=== PATIENT | female | born 1995 | race Caucasian/White ===

== ENCOUNTER 2022-01-30 21:12 | Inpatient (IN) | payer MEDICAID, SELFPAY ==
[2022-01-30 21:09] VITALS: BP 127/79; PULSE 72; RESP 98; TEMP 36.7; O2SAT 97; BMI 23.0
--- NOTE | 2022-01-30 21:13 | W.ED.PSYCHS ---
HPI - Psych General: Chief Complaint: Psychiatric Symptoms Stated Complaint: SI Source: patient and police Mode of arrival: other Limitations: no limitations History of Present Illness: 26-year-old female who here with police for suicidality she was found with a [employer] and she is going to kill her self. Patient here is have a flat affect not very cooperative. She states that she does have severe depression and just wants to . She has had a history of suicidality in the past. She is not on any meds currently. Associated symptoms: Reports depression and suicidal ideation Review of Systems Const: Denies: fever(s), chills, body aches or change in appetite Eyes: Denies: blurry vision or eye discomfort ENMT: Denies: throat pain or dental pain Card: Denies: chest pain Resp: Denies: dyspnea GI: Denies: abdominal pain, nausea, vomiting or diarrhea : Denies: dysuria Musc: Denies: neck pain or back pain Skin/Breast: Denies: rash Neuro: Denies: headache(s) Psych: Reports: depression and suicidal ideation Martin/Lymph: Denies: easy bruising All/Imm: Denies: urticaria PFSH ED PFSH: Medical History Depression Family History Other Psychiatric illness Physical Exam Const: COMMON NORMALS: no acute distress, patient oriented x3 and healthy appearing HENMT: COMMON NORMALS: normocephalic and atraumatic HEAD & SCALP: normocephalic and atraumatic Eye: COMMON NORMALS: Equal, round and reactive pupils present and EOMs intact bilaterally PUPIL: Yes Equal, round and reactive pupils present Neck/C-Spine: COMMON NORMALS: full ROM and supple Chest: COMMONS NORMALS: normal inspection of the chest and normal palpation of entire chest wall Resp: COMMON NORMALS: normal respiratory effort, No retractions, No use of accessory muscles and clear to auscultation bilaterally AUSCULTATION: clear to auscultation bilaterally Cardio: COMMON NORMALS: regular rate, regular rhythm and No murmurs present (Cardio) RATE: regular rate RHYTHM: regular rhythm GI: COMMON NORMALS: Normal to inspection, nondistended, normoactive bowel sounds present, Soft to palpation, non-tender and no masses PALPATION: Yes Soft to palpation Extremity: COMMON NORMALS: normal to inspection and full ROM Neuro: COMMON NORMALS: patient oriented x3, moves all extremities and no focal motor deficits Psych: COMMON NORMALS: mental status grossly normal, Normal thought process present and cooperative MOOD & AFFECT: Yes depressed mood THOUGHT PROCESS: Normal thought process present THOUGHT CONTENT: Yes Suicidality present Skin: COMMON NORMALS: no rashes or lesions noted and no wounds GENERAL SKIN EXAM: no rashes or lesions noted Course Vital Signs: Vital signs: Vital Signs Temperature 98.1 F 01/30/22 21:09 Pulse Rate 72 01/30/22 21:09 Respiratory Rate 98 H 01/30/22 21:09 Blood Pressure 127/79 01/30/22 21:09 Pulse Oximetry 97 01/30/22 21:09 MDM - Psych Medical Decision Making Patient presents here with suicidal ideations patient was placed under 96-hour hold I spoke to Dr. Ruiz and will admit. She is medically cleared. Lab Data : 01/30/22 22:50 01/30/22 22:50 Laboratory Results WBC 12.3 10^3/uL (4.0-10.0) H 01/30/22 22:50 RBC 4.70 10^6/uL (4.1-5.3) 01/30/22 22:50 Hgb 13.4 g/dL (11.5-15.3) 01/30/22 22:50 Hct 40.5 % (37.0-47.0) 01/30/22 22:50 MCV 86.2 fl (81-99) 01/30/22 22:50 MCH 28.5 pg (28.0-34.0) 01/30/22 22:50 MCHC 33.1 g/dL (30.0-36.0) 01/30/22 22:50 RDW 12.5 % (12.1-15.1) 01/30/22 22:50 Plt Count 276 10^3/cmm (130-400) 01/30/22 22:50 MPV 9.7 fL (7.4-10.4) 01/30/22 22:50 Neut % (Auto) 80.1 % 01/30/22 22:50 Lymph % (Auto) 16.8 % 01/30/22 22:50 [place] % (Auto) 2.5 % 01/30/22 22:50 Eos % (Auto) 0.1 % 01/30/22 22:50 Baso % (Auto) 0.2 % 01/30/22 22:50 Neut # (Auto) 9.86 10^3/uL (1.8-7.7) H 01/30/22 22:50 Lymph # (Auto) 2.1 10^3/uL (0.8-4.8) 01/30/22 22:50 [place] # (Auto) 0.3 10^3/uL (0.2-0.9) 01/30/22 22:50 Eos # (Auto) 0.0 10^3/uL (0.0-0.8) 01/30/22 22:50 Baso # (Auto) 0.0 10^3/uL (0.0-0.1) 01/30/22 22:50 Nucleated RBC % (auto) 0 % 01/30/22 22:50 Nucleated RBCs # 0.0 /100WBC 01/30/22 22:50 Sodium 139 mmol/L (136-145) 01/30/22 22:50 Potassium 4.9 mmol/L (3.5-5.1) 01/30/22 22:50 Chloride 103 mmol/L (98-107) 01/30/22 22:50 Carbon Dioxide 25 mmol/L (22-29) 01/30/22 22:50 Anion Gap 15.9 (5-19) 01/30/22 22:50 BUN 9 mg/dL (6-20) 01/30/22 22:50 Creatinine 0.6 mg/dL (0.5-0.9) 01/30/22 22:50 GFR Calculation 119.9 mL/min (90-130) 01/30/22 22:50 Glucose 133 mg/dL (65-115) H 01/30/22 22:50 Calculated Osmolality 289 mOsm/kg (285-295) 01/30/22 22:50 Calcium 10.5 mg/dL (8.5-10.5) 01/30/22 22:50 Total Bilirubin 0.3 mg/dL (0.15-1.2) 01/30/22 22:50 AST 18 U/L (0-32) 01/30/22 22:50 ALT 11 U/L (0-33) 01/30/22 22:50 Alkaline Phosphatase 70 IU/L (35-105) 01/30/22 22:50 Total Protein 7.8 g/dL (6.6-8.7) 01/30/22 22:50 Albumin 5.3 g/dL (3.5-5.2) H 01/30/22 22:50 Globulin 2.5 g/dL (1.3-4.6) 01/30/22 22:50 HCG, Qual Negative (Negative) 01/30/22 21:40 Salicylates 1.2 mg/dL (3-10) L 01/30/22 22:50 Urine Opiates Screen Negative ng/mL (Negative) 01/30/22 21:40 Acetaminophen < 5.0 ug/mL (10-30) L 01/30/22 22:50 Ur Barbiturates Screen Negative ng/mL (Negative) 01/30/22 21:40 Ur Phencyclidine Scrn Negative ng/mL (Negative) 01/30/22 21:40 Ur Amphetamines Screen Negative ng/mL (Negative) 01/30/22 21:40 U Benzodiazepines Scrn Negative ng/mL (Negative) 01/30/22 21:40 Urine Cocaine Screen Negative ng/mL (Negative) 01/30/22 21:40 U Marijuana (THC) Screen Positive ng/mL (Negative) H 01/30/22 21:40 Ethyl Alcohol < 10 mg/dL (0-10) 01/30/22 22:50 Discharge Plan Discharge Patient Disposition: Admitted As Inpatient Clinical Impression: Suicidal ideation Condition: Stable Coding Level of Care Code ED Supervisor Plating And Point Assembly for Carmen Fwfaith Exam Comprehensive
[2022-01-30 22:00] LABS: HCG Qualitative Urine. Negative (Negative)
[2022-01-30 22:08] LABS: Amphetamines Screen Urine Negative (Negative); Barbiturates Screen Urine Negative (Negative); Benzodiazepines Screen Urine Negative (Negative); Cocaine Screen Urine Negative (Negative); Opiate Screen Urine Negative (Negative); PCP Screen Urine Negative (Negative); THC Screen Urine Positive (Negative)
[2022-01-30 22:59] LABS: Basophils % 0.2 %; Eosinophils % 0.1 %; Hematocrit 40.5 % (37.0-47.0); Hemoglobin 13.4 g/dL (11.5-15.3); Lymphocytes # 2.1 10^3/uL (0.8-4.8); Lymphocytes % 16.8 %; Mean Corpuscular HGB Conc 33.1 g/dL (30.0-36.0); Mean Corpuscular Hemoglobin 28.5 pg (28.0-34.0); Mean Corpuscular Volume 86.2 fl (81-99); Mean Platelet Volume 9.7 fL (7.4-10.4); Monocytes # 0.3 10^3/uL (0.2-0.9); Monocytes % 2.5 %; Neutrophils # 9.86 10^3/uL (1.8-7.7); Neutrophils % 80.1 %; Nucleated Red Blood Cells % 0 %; Platelet Count 276 10^3/cmm (130-400); Red Cell Distribution Width 12.5 % (12.1-15.1); White Blood Count 12.3 10^3/uL (4.0-10.0)
[2022-01-30] MEDS: LORazepam 2 mg/mL INJ 1 mL IM (23:01)
[2022-01-30] MEDS: diphenhydrAMINE 50 mg/mL SDV 1mL IM (23:02)
[2022-01-30] MEDS: haloperidol inj 5 mg/mL INJ 1 mL IM (23:02)
[2022-01-30 23:16] LABS: Alanine Aminotransferase 11 U/L (0-33); Albumin Level 5.3 g/dL (3.5-5.2); Alkaline Phosphatase 70 IU/L (35-105); Aspartate Amino Transferase 18 U/L (0-32); Blood Urea Nitrogen 9 mg/dL (6-20); Calcium 10.5 mg/dL (8.5-10.5); Carbon Dioxide 25 mmol/L (22-29); Chloride 103 mmol/L (98-107); Creatinine Clr Calc Pharmacy 122.3455; Globulin 2.5 g/dL (1.3-4.6); Glomerular Filtration Rate 119.9 mL/min (90-130); Glucose 133 mg/dL (65-115); Osmolality Calculated 289 mOsm/kg (285-295); Salicylate 1.2 mg/dL (3-10); Sodium 139 mmol/L (136-145); Total Bilirubin 0.3 mg/dL (0.15-1.2); Total Protein 7.8 g/dL (6.6-8.7)
[2022-01-30 23:18] LABS: Acetaminophen < 5.0 ug/mL (10-30); Alcohol Level < 10 mg/dL (0-10)
[2022-01-30 23:19] LABS: Anion Gap 15.9 (5-19); Potassium 4.9 mmol/L (3.5-5.1)
[2022-01-30 23:46] VITALS: BP 87/52; PULSE 63; RESP 16; O2SAT 97
--- NOTE | 2022-01-31 00:14 | PC.ADMIT ---
[address] Admission Note: 26-year-old female who here with police for suicidality she was foune with a gun and said she was going to kill herself. Patient is poor historian at this time due to medication from ED. She states that she does have severe depression and just wants to . She has had a history of suicidality in the past with a psych admission 6 years ago and past suicide attempt. Her and her family have been arguing recently which has caused increased stress. She is not on any meds currently. A few minutes after arrival onto NPU she fell asleep-- given B52 in ED due to agitated and violent behavior. Associated symptoms: Reports depression and suicidal ideation The patient,Brandi Priest,26 y/o, was given written information regarding hospital policies, unit procedures and contact persons. Patient's smoking status: . Vital Signs - 8 hr 01/30/22 21:09 01/30/22 23:46 Temperature 98.1 F Pulse Rate 72 63 Respiratory Rate 98 H 16 Blood Pressure 127/79 87/52 Pulse Oximetry 97 97
[2022-01-31 05:44] VITALS: BP 109/78; PULSE 66; RESP 16; O2SAT 96
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
[2022-01-31] MEDS: escitalopram 10 mg Tablet PO (12:44)
[2022-01-31 19:37] VITALS: BP 106/66; PULSE 105; RESP 18; TEMP 37.9; O2SAT 97
[2022-01-31] MEDS: trazodone 50 mg Tablet PO (20:55)
[2022-02-01 05:29] VITALS: BP 97/64; PULSE 109; RESP 18
--- NOTE | 2022-02-01 05:47 | PC.NURSE ---
Patient is in her room sitting on the side of the bed stating she is not feeling well. Her temp is slightly up from last night at 100.5. Her Pulse is up at 116 and her bp is down to 91/54. Manual vital signs were taken with almost the same result. Will notify Dr. Huang when he comes in.
[2022-02-01 06:00] VITALS: BP 91/54; PULSE 116; RESP 20; TEMP 38.1; O2SAT 96
[2022-02-01] MEDS: escitalopram 10 mg Tablet PO (08:00)
[2022-02-01 08:41] LABS: Hematocrit 36.5 % (37.0-47.0); Hemoglobin 11.8 g/dL (11.5-15.3); Mean Corpuscular HGB Conc 32.3 g/dL (30.0-36.0); Mean Corpuscular Hemoglobin 28.4 pg (28.0-34.0); Platelet Count 193 10^3/cmm (130-400); Red Blood Count 4.15 10^6/uL (4.1-5.3); Red Cell Distribution Width 12.3 % (12.1-15.1); White Blood Count 7.3 10^3/uL (4.0-10.0)
[2022-02-01 08:54] LABS: Anion Gap 19.6 (5-19); Blood Urea Nitrogen 13 mg/dL (6-20); Calcium 9.3 mg/dL (8.5-10.5); Carbon Dioxide 19 mmol/L (22-29); Chloride 102 mmol/L (98-107); Creatinine Clr Calc Pharmacy 104.8675; Glomerular Filtration Rate 100.4 mL/min (90-130); Glucose 85 mg/dL (65-115); Osmolality Calculated 283 mOsm/kg (285-295); Potassium 3.6 mmol/L (3.5-5.1); Sodium 137 mmol/L (136-145)
[2022-02-01 09:22] LABS: Absolute Segmented Neutrophil 6.3 10/cmm (1.6-7.1); Band Neutrophils Absolute 0.1 10^3/cmm (0.0-1.2); Lymphocytes 9 %; Monocytes Absolute 0.3 10^3/cmm (0.1-0.6); Segmented Neutrophils 86 %; Total Cells Counted 100 (0-100)
[2022-02-01 09:23] LABS: Absolute Neutrophil 6.4 10^3/cmm (1.4-6.5); Eosinophils 0 %; Lymphocytes Absolute 0.7 10^3/cmm (1.2-3.4); Platelet Estimate Normal (Normal)
[2022-02-01] MEDS: hyDROXYzine 25 mg Capsule 50 MG PO (12:22)
[2022-02-01 14:00] VITALS: BP 120/80; PULSE 86; RESP 17; TEMP 36.7; O2SAT 96
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
[2022-02-01 20:21] VITALS: BP 104/67; PULSE 78; RESP 17; TEMP 37.1; O2SAT 97
[2022-02-01] MEDS: trazodone 50 mg Tablet PO (20:24)
[2022-02-02 06:00] VITALS: BP 98/65; PULSE 73; RESP 16; TEMP 36.9; O2SAT 98
[2022-02-02] MEDS: escitalopram 10 mg Tablet PO ×2 (08:33→20:47)
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
--- NOTE | 2022-02-02 12:07 | PC.SOCIAL ---
Patient completed an intake packet with [facility] for [facility] services.
[2022-02-02 14:00] VITALS: BP 111/75; PULSE 107; RESP 18; TEMP 36.4; O2SAT 96
[2022-02-02] MEDS: hyDROXYzine 25 mg Capsule 50 MG PO ×2 (14:51→21:36)
--- NOTE | 2022-02-02 15:18 | PC.SOCIAL ---
Patient attended and participated in group.
[2022-02-02 19:30] VITALS: BP 112/82; PULSE 102; RESP 18; TEMP 36.4; O2SAT 97
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
[2022-02-02] MEDS: trazodone 50 mg Tablet PO (20:47)
--- NOTE | 2022-02-02 22:57 | PC.NURSE ---
Patient came up to the nurses station after phone call stating she was having trouble breathing and was not sure what was happening. She had a flat affect and was very quiet. YARD ENGINEER had her sit on the bench by the nurses station. Vitals were obtained and all WNL. Lungs were clear upon auscultation. Patient was quiet spoken and ask about anxiety, she was not sure. YARD ENGINEER spoke with RN and it was decided to give Visteril. Visteril was given and patient was escorted back to her room by nurse. She is now resting in bed with his eyes closed.
[2022-02-03 06:00] VITALS: BP 107/67; PULSE 71; RESP 16; TEMP 37.1; O2SAT 96
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
[2022-02-03 13:36] VITALS: BP 102/70; PULSE 88; RESP 18; TEMP 37.2; O2SAT 97
[2022-02-03] MEDS: hyDROXYzine 25 mg Capsule 50 MG PO ×2 (16:03→21:54)
--- NOTE | 2022-02-03 16:05 | PC.NURSE ---
Administered vistaril 50mg for anxiety. Pt stated that she would like to have vistaril as a permanent script to go home with.
[2022-02-03 19:57] VITALS: BP 118/72; PULSE 79; RESP 17; TEMP 37.1; O2SAT 95
[2022-02-03] MEDS: trazodone 50 mg Tablet PO (20:20)
[2022-02-03] MEDS: escitalopram 10 mg Tablet PO (20:20)
[2022-02-04 06:00] VITALS: BP 113/75; PULSE 61; RESP 16; TEMP 36.7; O2SAT 98
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
[2022-02-04 09:05] VITALS: BP 113/75; PULSE 61; RESP 16; TEMP 36.7; O2SAT 98
--- NOTE | 2022-02-04 10:28 | PC.NURSE ---
Discharge Note Discharge teaching completed on appointments and new medications. Verbal order received from Dr. Huang to call in Vistaril as needed with no refills. Called to [facility] in [place]. Verbalizes understanding. All belongings sent with patient. Property sheet signed with discharge teachings. All questions answered and support voiced. Left with mother via POV. No distress noted and VSS. Discharged at 1027 AM.
== END 2022-02-04 10:27 | disposition home or self-care (01) | DRG 882 ==
LOC: ER 23:06 → NP 23:42
PROVIDERS: Admitting Provider Psychiatry & Neurology Psychiatry; Emergency Provider Emergency Medicine; Visit Provider Psychiatry & Neurology Psychiatry
DX: F43.10 Post-traumatic stress disorder, unspecified (principal); R45.851 Suicidal ideations; Z62.810 Personal history of physical and sexual abuse in childhood; Z63.8 Other specified problems related to primary support group
CPT/HCPCS: 36415; 80048; 80053; 80306; 80307; 81025; 85007; 85025; 85027; 87040; 96372; 97150; 97165; 99285; J1200; J1630; J2060